=== PATIENT | female | born 2000 | race Two or more races ===

== ENCOUNTER 2023-10-26 12:41 | Observation (INO) | payer MEDICAID, SELFPAY ==
[2023-10-26 13:16] VITALS: BP 101/64; PULSE 88
--- NOTE | 2023-10-26 13:22 | OBADM ---
This patient, Carol Galvez, admitted to the OB room [facility] for observation. Patient/family oriented to hospital policies and general routines including ID bracelet, bed and alarms, visiting hours, pain management, procedures, bathroom and other care routines, personal items, smoking policy, room service/diet, and visiting hours. Patient/Family are encouraged to report perceived risks to care and to ask questions if they do not understand what they are told or what they should do.
[2023-10-26 13:30] VITALS: BP 101/58; PULSE 82
[2023-10-26 13:45] VITALS: BP 102/62; PULSE 82
[2023-10-26 13:57] LABS: Appearance Urine Cloudy (Clear); Bacteria Urine 2+ /hpf; Bilirubin Urine Negative (Negative); Blood Urine Negative (Negative); Calcium Oxalate Crystals Urine Present /hpf; Color Urine Dark Yellow (Yellow); Glucose Urine UA Negative (Negative); Ketones Urine Trace mg/dL (Negative); Leukocyte Esterase Ur Trace LEU/UL (Negative); Nitrate Urine Negative (Negative); Non Pathogenic Casts 0-2; Protein Urine Trace mg/dL (Negative); Specific Grav Ur 1.028 (1.001-1.035); Squamous Epithelial Cell Urine Moderate /hpf (Few); pH Urine 6.5 (5.0-9.0)
[2023-10-26 14:00] VITALS: BP 88/67; PULSE 85
[2023-10-26 14:04] VITALS: TEMP 36.6
[2023-10-26 14:06] LABS: Add Urine Microscopic? YES
--- NOTE | 2023-10-26 15:50 | PC.NURSE ---
1415--Reported labs and pt status to Dr. Talbert. Prescription sent for UTI. Directions given to patient to follow up with regular OB this week.
--- NOTE | 2023-10-28 18:15 | PM.OBTRLD ---
OB - Triage/Final Diagnosis Visit Information Reason for evaluation: other ( pelvic pressure; UTI) Comments/Additional reasons for admission: I have assessed the risk for this patient, Carol Galvez, and determined that she would benefit from observation care. Evaluation Laboratory results: Laboratory Tests 10/26/23 13:27 Urine Color Dark yellow Urine Appearance Cloudy H Urine pH 6.5 Ur Specific [place] 1.028 Urine Protein Trace Urine Glucose (UA) Negative Urine Ketones Trace H Ur Blood (Man) Negative Urine Nitrate Negative Urine Bilirubin Negative Urine Urobilinogen 1.0 Leukocyte Esterase Rfl Trace H Urine RBC 6-10 H Urine WBC 6-10 H Ur Squamous Epith Cells Moderate Calcium Oxalate Crystal Present Urine Bacteria 2+ H Urine Casts 0-2
== END 2023-10-26 14:51 | disposition home or self-care (01) ==
PROVIDERS: Admitting Provider Obstetrics & Gynecology Gynecology; Visit Provider Obstetrics & Gynecology Gynecology
DX: O23.43 Unspecified infection of urinary tract in pregnancy, third trimester (principal); Z3A.31 31 weeks gestation of pregnancy
CPT/HCPCS: 81001; 87086; 87088; G0378; G0379